=== PATIENT | male | born 1985 | race African-American/Black ===

== ENCOUNTER 2022-11-06 03:52 | Emergency (ER) | payer SELFPAY ==
[~2022-11-06] VITALS: Ht 190.5 cm; Wt 94.5 kg
[2022-11-06 03:57] VITALS: BP 106/83
[2022-11-06 05:38] LABS: URINE AMPHETAMINE SCREEN NEGATIVE (Neg); URINE BARBITUATE SCREEN NEGATIVE (Neg); URINE BENZODIAZEPINES SCREEN NEGATIVE (Neg); URINE CANNABINOID SCREEN POSITIVE (Neg); URINE COCAINE SCREEN NEGATIVE (Neg); URINE METHADONE SCREEN NEGATIVE (Neg); URINE OPIATE SCREEN NEGATIVE (Neg); URINE PHENCYCLIDINE SCREEN NEGATIVE (Neg)
[2022-11-06 05:46] LABS: CLARITY,URINE CLEAR (Clear); COLOR,URINE YELLOW (Yellow); GLUCOSE, URINE NEGATIVE (Neg); KETONES,URINE TRACE mg/dl (Neg); LEUKOCYTE ESTERASE ,URINE NEGATIVE (Neg); NITRITES, URINE NEGATIVE (Neg); OCCULT BLOOD,URINE NEGATIVE (Neg); PROTEIN,URINE NEGATIVE (Neg); UROBILINOGEN,URINE 0.2 E.U/dL (0.2-1.0)
[2022-11-06 05:48] LABS: UA COLLECTION TYPE CLN CATCH MIDSTREAM
[2022-11-06 06:05] LABS: BASOPHILS % (AUTO) 0.8 % (0-1); EOSINOPHILS % (AUTO) 0.8 % (0-6); HEMATOCRIT 39.1 % (42.0-52.0); HEMOGLOBIN 12.6 g/dl (14.0-17.9); LYMPHOCYTES # (AUTO) 1.4 X10'3 (1.1-4.8); LYMPHOCYTES % (AUTO) 40.4 % (21-51); MEAN CORPUSCULAR HEMOGLOBIN 25.8 PG (27.0-31.0); MEAN CORPUSCULAR HGB CONC 32.2 g/dL (33.0-36.5); MEAN PLATELET VOLUME 6.6 FL (7.4-10.4); MONOCYTES # (AUTO) 0.5 X10'3 (0-0.9); MONOCYTES % (AUTO) 14.9 % (2-12); NEUTROPHILS # (AUTO) 1.5 X10'3 (1.8-7.7); NEUTROPHILS % (AUTO) 43.1 % (42-75); PLATELET COUNT 391 X10'3 (140-440); RED BLOOD COUNT 4.89 X10'6 (4.70-6.10); RED CELL DISTRIBUTION WIDTH 19.2 % (11.5-14.5); WHITE BLOOD COUNT 3.6 X10'3 (4.5-11.0)
[2022-11-06] MEDS ORDERED: acetaminophen 325mg tablet PO ONE (06:10)
[2022-11-06] MEDS ORDERED: ibuprofen tablet 400 MG TABLET PO ONE (06:10)
[2022-11-06 06:25] LABS: ALANINE AMINOTRANSFERASE 24 U/L (12-78); ALBUMIN 4.2 G/DL (3.4-5.0); ALBUMIN/GLOBULIN RATIO 1.1 (1.1-1.5); ALKALINE PHOSPHATASE 82 IU/L (46-116); ANION GAP 8 (8-16); ASPARTATE AMINO TRANSFERASE 22 U/L (10-37); BILIRUBIN,TOTAL 0.5 MG/DL (0.1-1.0); BLOOD UREA NITROGEN 11 MG/DL (7-18); BUN/CREATININE RATIO 8.6 (10.0-20.0); CALCIUM 9.3 MG/DL (8.5-10.1); CHLORIDE 100 MMOL/L (99-107); CREATININE 1.28 MG/DL (0.60-1.10); GLUCOSE 94 MG/DL (70-104); POTASSIUM 3.5 MMOL/L (3.5-5.1); SODIUM 137 MMOL/L (135-145); TOTAL CARBON DIOXIDE 28.6 MMOL/L (24-32); TOTAL PROTEIN 7.9 G/DL (6.4-8.2); eGFR 77 ML/MIN
[2022-11-06 06:33] LABS: ETHANOL < 0.010 GM/DL (0.0-0.010)
[2022-11-06 06:37] LABS: ACETAMINOPHEN < 2.0 UG/ML (10-30)
--- NOTE | 2022-11-06 13:01 | NUR ---
Pt ate lunch. Resting in bed. No acute distress noted at this time.
--- NOTE | 2022-11-06 14:15 | NUR ---
PT RESTING IN BED. NO ACUTE DISTRESS NOTED AT THIS TIME.
--- NOTE | 2022-11-06 14:43 | NUR ---
PT WENT TO BATHROOM WAS IN THERE FOR ABOUT 10 MINUTES AND HAD WATER RUNNING. PT REFUSED TO COME OUT. SECURITY HAD TO BE CALLED TO ESCORT PT BACK TO HIS ROOM.
--- NOTE | 2022-11-06 15:03 | NUR ---
COLLEEN [facility] CALLED TO TALK ABOUT PT. SPOKE WITH JAGJIT. SHE SAID SHE WILL CALL BACK LATER TODAY IF HE IS ACCEPTED.
== END 2022-11-06 16:15 ==
LOC: ER 03:54
DX: S61.512A Laceration without foreign body of left wrist, initial encounter (principal); Z20.822 Contact with and (suspected) exposure to COVID-19; X78.8XXA Intentional self-harm by other sharp object, initial encounter; Y93.89 Activity, other specified; Y92.89 Other specified places as the place of occurrence of the external cause; Y99.8 Other external cause status
CPT/HCPCS: 36415; 72100; 80053; 80305; 80320; 80329; 81003; 84443; 85025; 87811; 99285

== ENCOUNTER 2022-11-13 18:16 | Emergency (ER) | payer SELFPAY ==
[~2022-11-13] VITALS: Ht 190.5 cm; Wt 95.5 kg
[2022-11-13 18:36] VITALS: BP 154/101
[2022-11-14] MEDS ORDERED: ibuprofen tablet 400 MG TABLET PO ONE (01:15)
== END 2022-11-14 01:23 | disposition left against medical advice (07) ==
LOC: ER 18:17
DX: R51.9 Headache, unspecified (principal); Z53.21 Procedure and treatment not carried out due to patient leaving prior to being seen by health care provider
CPT/HCPCS: 99281